=== PATIENT | male | born 1950 | race Caucasian/White ===

== ENCOUNTER 2024-12-13 08:34 | Outpatient (REF) | payer MEDICARE, OTHER, SELFPAY ==
--- OUTSIDE RECORDS SUMMARY | 2024-12-13 11:03 | XMS_ITS | Data Portability ---
Author Organization [place] [facility] Address [address] [place] [address] Care Team Providers Care Lead Applications Developer Name Role Phone LU MAURICIO Primary Care Provider Assessment Encounter Date Assessment Date Assessment LastModified by Organization Details LastModified Time 03/03/2022 03/03/2022 Overview/History : 72 YO M new to DH and new to provider Seen today in his home PMH of CAD s/p CABG, HLD, Hypothyroid He has 1-2 day hx of cold like sxs Mild non-productive cough, stuffy nose, sore throat yesterday but better today. He tested negative for COVID yesterday when sxs began. He reports he had fever Tmax 100.2 F yesterday and he is taking Tylenol w/ good effect. He is also taking Vit C to help his immune system. Nothing makes sxs worse. Currently he denies any abd pain, NVD, weakness, lethargy, headache, visual changes, diff swallowing, numbness/tinglin g, SOB, chest pain. No other reported sxs or concerns today. Overall he feels he has a cold and his sxs are mild. Exam: Vitals: VSS and afebrile; ambulatory O2 sat stable at 97-98% w/o sxs of hypoxia Constitutional: 72 yo Well developed, well nourished, pleasant patient in no apparent distress. Laying in bed comfortably and not toxic appearing. Watching TV. Eyes: PERRL at 4mm, EOM's intact, No swelling, no discharge, sclera / conjunctiva clear ENT: no nasal discharge, no erythema/ exudate noted in oropharynx, uvula midline, moist mucous membranes CV: RRR, no rubs/ murmurs/ gallops heard, 2+ radial pulses bilaterally, no edema and no calf tenderness BL, 2+ DP/ PT pulses bilaterally Pulm: breath sounds clear and equal bilaterally, no wheeze/ rhonchi or rales on auscultation. Speaks in full sentences, no increased work of breathing. GI: Soft, non-tender to palpation. No masses, normal bowel sounds. No guarding and no distension. MS: Self ambulatory patient, moves all limbs without deficit, no evidence of trauma Neuro: No focal deficits, A&O x4, gait is not ataxic Skin: No rash. + cap refill, no cyanosis/pallor Psych: Calm, cooperative, non-manic. Pleasant. DDx considered, but not limited to: COVID - + test and consistent sxs Flu/RSV - no systemic sxs ie body aches to make me think flu, no tachypnea or low O2 sat to make me think RSV, more mathew covid based on sxs URI - d/t COVID see above CAP - lungs CTAB, no fever, not productive cough, doubtful Work up/Results: Rapid COVID + Plan/Discussion: COVID: -+ for COVID, sxs started yesterday morning -Pt overall w/ mild cold sxs, he is full vax w/ all boosters for COVID -He has some risk factors for severe dz, discussed Paxlovid -Discussed s/e and rebound COVID; he would like to think on this and discuss w/ PCP harsh since he will have to come off of atorvastatin possiby w/ script/ We also do not do prior auths which may delay him in getting medication. He will call PCP and discuss once we leave as he would like their opinion anyway. He is also given free [employer] link to see about free telehealth consultation for paxlovid online. -Overall he is w/ mild sxs and I expect resolution in coming days, some of his sxs are already better today ie sore throat -isolate per CDC guidelines -Drink plenty of fluids and rest -F/u if sxs change or linger; educated that cough may linger after viral illness -ED precautions for high fever, abd pain, sig NVD, lethargy, weakness, lightheadedness/ dizziness, chest pain, SOB, cyanosis/palor numbness/tinglin g Pt is on agreement and verbalizes understanding with the above plans at this time. Pt has no other questions or concerns at this time. All questiosn are answered to the best of my ability. Pt thanks us for our visit today. Pt is in good spirits as we leave laying in bed comfortable and wishing us a good day. [email or web address] Not available 03/03/2022 09:33:48 Plan of Treatment Reminders Order Date Submit Date Provider Last Modified By Organization Details Last Modified Time Details Appointments None recorded. Lab rapid SARS CoV 2 Ag, QL IA, respiratory specimen 2022 023 [facility], [address] [place], [address], 09:33:20 Referral None recorded. Procedures None recorded. Surgeries None recorded. Imaging None recorded. Medication Orders None recorded. Patient TargetsNo targets recorded. Patient InstructionsNo instructions recorded. Reason for Referral None Reported. Results Created Date Observation Date Name Description Value Unit Range Abnormal Flag Note LastModifiedBy Organization Detail LastModifiedTime 03/03/19 23 03/03/2022 rapid SARS CoV 2 Ag, QL IA, respi rator y speci men Covid-19 (ref: neg) positi ve Not Available [facility] [address] [place] [address], [phone], 03/03/2022 09:32:53 03/03/19 23 03/03/2022 rapid SARS CoV 2 Ag, QL IA, respi rator y speci men Control Visual ized/V alid Not Available [facility] [address] [place], [address], 03/03/2022 09:32:53 03/03/1903/03/2022 rapid SARS CoV 2 Ag, QL IA, respi rator y speci men Location [facility], [address] [place] [address], [id number] Not Available [facility] [address] [place], [address], 03/03/2022 09:32:53 Result Notes None recorded. Procedures Surgical History Date Name Laterality Status Provider Name and Address Organization Details Recorded Time 023 Medication Review completed FRANCY Lambert [address] [place], [address], [place] [facility] 03/03/2022 09:27:17 Appendectomy completed FRANCY Lambert [address], [place], [address], [place] [facility] 03/03/2022 08:37:28 CABG completed FRANCY Lambert [address], [place], [address], [place] [facility] 03/03/2022 08:42:33 Imaging Results None recorded. Procedure Notes None recorded. Medical Equipment None Reported. Allergies Allergen ID Allergen Name Allergen Category Reaction Reaction Severity Criticality Documentation Date Start Date Code Code System Note Provider Name and Address Organization Details Recorded Time [id number] Dilaudid medicatio n Not available Not available Not available 03/03/2022 46008 3 RxNorm FRANCY Ku [address] [place], [address], [place] [facility] 08:40:41 Medications Name Sig Start Date Stop Date Status Note LastModified by Organization Details LastModified Time amoxicillin 500 mg capsule TAKE ONE CAPSULE BY MOUTH THREE TIMES A DAY UNTIL GONE 03/03 completed Not Available Not Available Not Available atorvastati n 20 mg tablet TAKE 1 TABLET BY MOUTH EVERY DAY active Not Available Not Available No t Available peg-electro lyte solution 420 gram oral solution PLEASE SEE ATTACHED FOR DETAILED DIRECTION S 03/03 completed Not Available Not Available Not Available levothyroxi ne 100 mcg tablet TAKE 1 TABLET BY MOUTH DAILY active Not Available Not Available No t Available famotidine 20 mg tablet TAKE 1 TABLET BY MOUTH TWICE A DAY active Not Available Not Available No t Available tamsulosin 0.4 mg capsule TAKE 2 CAPSULES BY MOUTH AT BEDTIME active Not Available Not Available No t Available indomethaci n 50 mg capsule TAKE 1 CAPSULE BY MOUTH THREE TIMES A DAY FOR 7 DAYS 03/03 completed Not Available Not Available Not Available colchicine 0.6 mg tablet TAKE 2 TABLETS BY MOUTH ONE DOSE, THEN 1 TABLET BY MOUTH 1 HR LATER 03/03 completed Not Available Not Available Not Available fluticasone propionate 50 mcg/actuati on nasal spray,suspe nsion SPRAY 2 SPRAYS INTO EACH NOSTRIL EVERY MORNING active Not Available Not Available No t Available atenolol 50 mg tablet TAKE 1 TABLET BY MOUTH EVERY DAY active Not Available Not Available No t Available Readi-Cat 2 2 % (w/v) oral suspension USE DIRECTED PER 03/03 completed Not Available Not Available Not Available Vitals Date Recorded Heart rate Respiratory rate Oxygen saturation Oxygen saturation in Arterial blood by Pulse oximetry Body temperature Systolic And Diastolic Provider Name and Address Organization Details Last Updated DateTime 3 82 /min 18 /min 96 % 96 % 98.6 [degF] 138/78 mm[Hg] Not Available [facility] 09:09:41 Social History Question Answer Notes LastModified by [employer] Details LastModified Time Tobacco Smoking Status Former Smoker FRANCY Lambert [facility], [address], [place] [facility] 03/03/2022 08:46:56 When Did You Quit Smoking? 11-15yearssi ncelastcigar ette Information not available 03/03/2022 Does This Patient Have A PCP? Yes [email or web address] Information not available 03/03/2022 Has The Patient Seen Their PCP In The Past 6 Months? Yes [email or web address] Information not available 03/03/2022 Sex: Unknown Functional Status Question Answer Note LastModified by [employer] Details LastModified Time Do you use any illicit or recreational drugs? No Information not available 03/03/2022 What is your level of alcohol consumption? Occasional Information not available 03/03/2022 Mental Status None recorded. Family History Relationship Description Onset Age of this Age Resolved Age Notes LastModified by Organization Details LastModified Time Brother Hypertensive disorder [email or web address] Not available 2022 08:45:18 Medical History Condition Response Diabetes N Coronary Artery Disease Y CHF N Parkinson's Disease N Cancer N Stroke N Dementia N Hypothyroidism Y COPD N Asthma N Depression N High Cholesterol Y Rheumatoid Arthritis N Pulmonary Embolism N Hypertension N A-fib N Osteoporosis N Kidney Disease N Past Encounters Encounter ID Performer Location Encounter Start Date Encounter Closed Date Diagnosis/Indication Diagnosis SNOMED-CT Code Diagnosis ICD10 Code Diagnosis IMO Codes Diagnosis Note [id number] FRANCY Vargas [facility] [address] [place] [address] 03/03/2022 08:36:16 03/06/2022 13:49:25 COVID-19 250531466 U07.1 Health Concerns Section Related Observation LastModified by Organization Detai ls LastModified Time None Recorded Concern Status LastModified by Organization Details LastModified Time None Recorded Advance Directives Directive None Recorded Payers Insurance Date Sequence Insurance Name Policy Number Policy Ackerman Covered Member ID Ackerman Member ID Guarantor Name 03/03/2022 2 [facility] (MEDICARE SUPPLEMENT) Joselo Dean [id number] Joselo Aniyah 03/03/[address] [facility] (MEDICAID HMO) Joselo Dean [id number] Joselo Dill 03/25/2022 2 [facility] (MEDICARE SUPPLEMENT) [id number] Joselo Dean [id number] [facility] 03/25/2022 1 MEDICARE [place]: [facility] [employer] Joselo Dean [id number] [place] Aniyah 03/03/2022 1 *SELF PAY* Joselo Dean [id number] [facility] Notes Date Note Type Note Provider Name and Address Organization Details Recorded Time 03/03/2022 text/html 72 YO M new to and new to providerSeen today in his homePMH of CAD s/p CABG, HLD, HypothyroidHe has 1-2 day hx of cold like sxsMild non-productive cough, stuffy nose, sore throat yesterday but better today.He tested negative for COVID yesterday when sxs began. He reports he had fever Tmax 100.2 F yesterday and he is taking Tylenol w/ good effect. He is also taking Vit C to help his immune system. Nothing makes sxs worse.Currently he denies any abd pain, NVD, weakness, lethargy, headache, visual changes, diff swallowing, numbness/tingling, SOB, chest pain. No other reported sxs or concerns today. Overall he feels he has a cold and his sxs are mild. FRANCY Lambert [address], [place], [address], [place] [facility] 03/03/2022 09:34:09
[2024-12-13 11:28] LABS: MANUAL DIFF FLAG NO
[2024-12-13 11:37] LABS: Hematocrit 48.6 % (42.0-52.0); Hemoglobin 16.0 g/dl (14.0-18.0); Imm Gran Abs Auto 0.03 X10*3/uL (0.00-0.03); Imm Gran Pct Auto 0.5 % (0.0-0.4); Lymphocytes Absolute Auto 2.0 X10*3/uL (1.2-4.9); Mean Corpuscular HGB Conc 32.9 g/dl (31.0-36.0); Mean Corpuscular Hemoglobin 30.6 pg (27.0-33.0); Mean Corpuscular Volume 92.9 fL (80.0-98.0); NRBC Abs Auto 0.000 X10*3/uL (0.0-0.012); NRBC Pct Auto 0.0 /100WBC (0.0-0.2); Platelet Count 155 X10*3/uL (160-400); Red Blood Count 5.23 X10*6/uL (4.60-5.80); White Blood Count 6.1 X10*3/uL (4.8-10.8)
[2024-12-13 11:41] LABS: Appearance Urine Clear; Glucose Urine UA Negative (Negative); PH 6.0 (5.0-9.0); Specific Gravity - Urine 1.015 (1.005-1.025)
[2024-12-13 12:01] LABS: Alanine Aminotransferase 72 U/L (0-40); Albumin Level 4.7 g/dL (3.5-5.0); Alkaline Phosphatase 64 U/L (39-117); Anion Gap 12 (12-20); Aspartate Amino Transferase 41 U/L (5-37); Blood Urea Nitrogen 14 mg/dL (9-16); Calcium 9.7 mg/dL (8.4-10.2); Carbon Dioxide 30 mmol/L (22-29); Chloride 101 mmol/L (96-108); Cholesterol 121 mg/dL (<200); Estimated Glomerular Filt Rate > 60; HDL Cholesterol 38 mg/dL (>40); Potassium 4.2 mmol/L (3.3-5.1); Sodium 139 mmol/L (135-145); Total Protein 7.6 g/dL (6.5-8.0); Triglycerides 154 mg/dL (<150)
[2024-12-13 12:30] LABS: Microalbum/Creatinine Ratio Ur 5.4 ug/mg cr (<30)
[2024-12-20 21:09] LABS: PSA, Ultra Sensitive 3.79 ng/mL
== END 2024-12-13 08:35 | disposition home or self-care (01) ==
LOC: HO.WFDLDS 08:34
PROVIDERS: PCP Nurse Practitioner Family; Visit Provider Nurse Practitioner Family
DX: Z00.00 Encounter for general adult medical examination without abnormal findings (principal); N40.1 Benign prostatic hyperplasia with lower urinary tract symptoms; R35.1 Nocturia; G47.9 Sleep disorder, unspecified; M81.0 Age-related osteoporosis without current pathological fracture; Z23 Encounter for immunization; Z12.5 Encounter for screening for malignant neoplasm of prostate
CPT/HCPCS: 36415; 80053; 80061; 81003; 82043; 82306; 82570; 84153; 84443; 85025; 90471; 90715; 96127; 99202

== ENCOUNTER 2024-12-13 08:34 | Outpatient (AMB) | payer MEDICARE, OTHER, SELFPAY ==
--- NOTE | 2024-12-13 08:36 | MHC.PC.OV ---
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 Allergies hydromorphone (From Dilaudid) Allergy (Intermediate, Verified 12/13/24 09:01) Vomiting Medication List - Last Reconciled 12/13/24 by Latesha Mckeon CNP aspirin (Adult Low Dose Aspirin) 81 mg PO DAILY atenolol 25 mg PO DAILY atorvastatin 20 mg PO DAILY cholecalciferol (vitamin D3) 50 mcg PO DAILY coQ10 (ubiquinol) (Qunol Shivam CoQ10) 100 mg PO DAILY famotidine 20 mg PO BID gabapentin 100 mg PO TID levothyroxine 100 mcg PO DAILY mecobalamin (vitamin B12) 1,000 mcg PO DAILY multivitamin (Daily Multi-Vitamin tablet) 1 tab PO DAILY omega 6-zqk-vfb-fish oil 100-160-1,000 mg (Fish Oil) 2 caps PO DAILY tamsulosin 0.8 mg PO BEDTIME Tobacco use date assessed: 12/13/24 Fall risk assessment: 2 + Falls in past year Last assessed Fall Risk: 12/13/24 Dental Screening Dental Screen Date: 12/13/24 Did you have a dental visit in the last 12 months?: Yes Did you have a dental problem in the last 6 months where you did not have access to dental care?: No Was dental information given to patient?: Patient has dentist HPI HPI Comments History of Present Illness Details 74-year-old male presents to establish care. He admits to taking his medications as prescribed without adverse reactions. Prior PCP? - Dr. Moreno, [facility] Last office visit/CPE/labs - Unsure Acute issue(s) - None Past Medical History - Hypertension, heart disease, hyperlipidemia, pacemaker, cataract both eyes, hypothyroidism, osteoporosis, IBS, GERD, tendinitis left elbow, arthritis multiple joints, BPH Surgical History - Heart bypass surgery, appendectomy, tendon repair left elbow, cataract surgery, cyst removal from right buttock r/t work-related injury, surgical repair of left 5th digit d/t injury Family History - Mom: Heart disease - Alive - Dad: Pick's disease - - MGF: Heart disease - Social History - Former smoker, half a pack daily x 8 years with intermittent cessation, quit in 2011. Does not vape. Drinks 1-2 glasses of wine/scotch or bourbon 2 times weekly. Denies recreational drug use - Has been making healthy dietary choices.Active but does not exercise. Reports difficulty staying asleep due to urinary urgency and hesitancy. Requests urology referral Health maintenance - Last eye exam was in 10/[address] Blair. He has an appointment with him today. Encouraged to sign a release for his PCP to obtain is ophthalmology record - Last dental visit was about a month ago - Last tetanus vaccine was more than 10 years ago; received Tdap vaccine today - Received flu vaccine in 10/2024 - Had the shingles and pneumonia vaccines - Last colonoscopy was in was with [facility] gastroenterology in 06/08/2021: Benign polyps. Recommended next colonoscopy after 5 years. Will request record for review - Last dexa scan unknown. Dexa scan ordered Specialists - Dr. Blair, Ophthalmology - Dr. Memo Lockhart, [facility] REPLACED BY [facility] Medical History (Updated 12/13/24 @ 09:38 by Latesha Mckeon CNP) Prostate troubles History of gastroesophageal reflux (GERD) IBS (irritable bowel syndrome) Osteoporosis Arthritis H/O thyroid disease Heart disease High blood pressure Tendinitis Pacemaker Surgical History (Updated 12/13/24 @ 08:58 by SAY Antunez) History of removal of cyst Hx of appendectomy History of heart bypass surgery Family History (Updated 12/13/24 @ 09:04 by SAY Antunez) Brother Alcohol abuse Substance abuse Cardiovascular disease FH: thyroid disease Mother High blood pressure High cholesterol Cancer Other Patient's father is Social History (Updated 12/13/24 @ 08:52 by SAY Antunez) Housing: House Patient Tobacco Use Status: Never used Tobacco e-Cigarette/Vaping Use: Never Used Second Hand Smoke Exposure: No service: No Current occupational status: retired Current occupational exposures/hazards: No Cognitive needs: No Hearing needs: No Vision needs: Yes Questionnaire PHQ-9 Over the last 2 weeks, how often have you been bothered by any of the following problems? 1. Little interest or pleasure in doing things: not at all 2. Feeling down, depressed, or hopeless: not at all 3. Trouble falling or staying asleep, or sleeping too much: not at all 4. Feeling tired or having little energy: not at all 5. Poor appetite or overeating: not at all 6. Feeling bad about yourself - or that you are a failure or have let yourself or your family down: not at all 7. Trouble concentrating on things, such as reading the newspaper or watching television: not at all 8. Moving or speaking so slowly that other people could have noticed. Or the opposite - being so fidgety or restless that you have been moving around a lot more than usual: not at all 9. Thoughts that you would be better off or of hurting yourself in some way: not at all Total score: 0 Depression Screening Interpretation: Negative Depression Screening Done: Yes 85394 - PHQ-9 Billing: Yes Source: Developed by Drs. Juan Mccarthy, Wandy Wood, Jaison Smith and colleagues, with an educational ed from [employer]. Thrive Questionnaire Date Thrive assessed: 12/13/24 I am a: Patient What is your living situation today?: I have a steady place to live Within the past 12 months, did the food you bought not last and you didn't have the money to get more?: Never true Within the past 12 months, did you worry whether your food would run out before you got money to buy more?: Never true Do you have trouble paying for medicines?: No Do you have trouble getting transportation to medical appointments?: No Do you have trouble paying your heating and electricity bill?: No Do you have trouble taking care of your child, family member or friend?: No Do you have trouble with day-to-day activities such as bathing, preparing meals, shopping, managing finances, etc.?: No Are you currently unemployed and looking for a job?: No Are you interested in more education?: No Please select the resources that you would like help with: None Currently or been in a relationship where the following occur: No concerns reported THRIVE Score: 0 AUDIT C Alcohol Use Questionnaire (AUDIT-C) 1. How often do you have a drink containing alcohol?: 2-4 times a month 2. How many drinks containing alcohol do you have on a typical day when you are drinking?: 1 or 2 3. How often do you have six or more drinks on one occasion?: Never Total Score: 2 Score Reviewed/Action Taken: Yes ZANDER-7 AMB Questionnaire ZANDER-7 Date ZANDER - 7 assessed: 12/13/24 Feeling nervous, anxious, or on edge: 0 = Not at all Not being able to stop or control worryin = Not at all Worrying too much about different things: 0 = Not at all Trouble relaxin = Not at all Being so restless that it is hard to sit still: 0 = Not at all Becoming easily annoyed or irritable: 0 = Not at all Feeling afraid as if something awful might happen: 0 = Not at all Total ZANDER-7 score (0-4 normal; 5-9 mild; 10-14 moderate; 15-21 severe): 0 Source: Developed by Drs. Juan Mccarthy, Wandy Wood, Jaison Smith and colleagues, with an educational ed from [employer]. AZNDER-7 Assessment Billing ZANDER-7 Assessment Tool: ZANDER-7 Assessment 37458 Review of Systems Const Details: Denies chills, Denies fatigue, Denies fever(s), Denies headache(s) and Denies weakness HEENT Denies change in vision, Denies dizziness, Denies headache(s), Denies hearing loss, Denies nasal congestion, Denies sinus pain, Denies sinus pressure and Denies sore throat Card Denies chest pain, Denies lightheadedness, Denies dyspnea and Denies other (palpitations) Resp Denies cough, Denies dyspnea and Denies wheezing GI Denies abdominal pain, Denies melena, Denies hematochezia, Denies change in bowel habits, Denies dyspepsia and Denies nausea Denies hematuria and Denies dysuria Musc Denies abnormal gait, Denies myalgias, Denies arthralgias, Denies numbness and Denies tingling Skin/Breast Denies rash, Denies unusual bruising and Denies wounds Neuro Denies abnormal gait, Denies dizziness, Denies headache(s), Denies memory loss, Denies numbness, Denies Sensory deficit (Neuro), Denies tingling and Denies weakness Psych Denies anxiety, Denies depression and Denies memory loss Endo Denies cold intolerance, Denies fatigue, Denies heat intolerance, Denies polydipsia and Denies polyuria Devante/Lymph Denies easy bleeding and Denies easy bruising Aller/Immun Denies wheezing Physical exam (Primary Care) Vital Signs: Last Vital Signs Temp 97.8 F 12/13/24 08:52 Pulse 66 12/13/24 08:52 Resp 16 12/13/24 08:52 BP 131/75 12/13/24 08:52 Pulse Ox 96 12/13/24 08:52 Oxygen Delivery Method Room Air 12/13/24 08:52 BMI result Body Mass Index 32.0 Tobacco/Smoking Status: Tobacco use Status Tobacco use date assessed 12/13/24 12/13/24 08:52 Patient Tobacco Use Status Never used Tobacco 12/13/24 08:52 e-Cigarette/Vaping Use Never Used 12/13/24 08:52 PHQ-9: PHQ-9 Score PHQ-9: Total score 0 12/13/24 09:42 Depression Screening Interpretation: Negative Thrive Assessment: Date of Thrive Assessment Date Thrive assessed 12/13/24 12/13/24 08:39 Currently or been in a relationship where the following occur: No concerns reported Const Other: General: no acute distress, well developed, alert and awake Nutritional Appearance: well nourished Orientation/consciousness: patient oriented x3 HENMT Head: Yes normocephalic and Yes atraumatic Ears: hearing grossly normal bilaterally and TM's normal bilaterally General nose exam: Normal external nose present and Normal nares present Mouth: Normal oral and palatal mucosa present and moist mucous membranes Teeth and gingiva: dentition normal Throat: Yes oropharynx normal Eyes Pupils: Equal, round and reactive pupils present and Pupil accommodation reflex normal EOM: EOMs intact bilaterally Neck Neck: Yes normal visual inspection, Yes no lymphadenopathy and Yes trachea midline Thyroid: Thyroid normal Carotids: no bruits Lymphatic: no lymphadenopathy noted Chest Chest palpation & inspection: normal inspection of the chest Resp Effort & Inspection: normal respiratory effort Auscultation: clear to auscultation bilaterally Cardio Rate: regular rate Rhythm: regular rhythm Heart sounds: S1 normal heart sound present, S2 normal heart sound present, no gallops, no murmurs and no rubs Bruits: no abdominal aortic bruits and no carotid bruits GI Palpation (GI): No Abdominal aortic bruit present, Soft to palpation, nontender, No hepatosplenomegaly present and No Rebound tenderness present Auscultation: normal bowel sounds General: Yes no CVA tenderness Back/Spine/Pelvis Back: no CVA tenderness Cervical Spine: cervical ROM normal and No Cervical spine tenderness Thoracic/Lumbar Spine: thoraco-lumbar ROM normal, No pain with thoraco-lumbar ROM, No thoracic spinal tenderness and No lumbar spinal tenderness Skin General: warm and dry. Normal skin color. Normal skin turgor Lesions: no lesions Rashes: no rashes Trauma: no lacerations or abrasions Wounds: no wounds Nails: normal Neuro General: patient oriented x3, gait normal and CN's II-XI intact bilaterally Cranial nerves: Yes Equal, round and reactive pupils present Cognition (Neuro): normal cognition Gait exam (Neuro): Normal gait present Motor exam (neuro): 5/5 motor strength present throughout Sensory Exam: No Sensory deficit (Neuro) Deep tendon reflexes (DTR's): Right patellar reflex intensity grade: 2+ and Left patellar reflex intensity grade: 2+ Extrem General: Yes normal to inspection, No edema and No calf tenderness Psych Appearance: grossly normal Affect: normal affect Attitude: cooperative Thought process: Normal thought process present Immunizations Boostrix Tdap 2.5 Lf unit-8 mcg-5 Lf/0.5 mL intramuscular syringe Performing Provider: Latesha Mckeon CNP Performing Location: [facility] Administered by: Memo Vuong RN on 12/13/24 09:42 Dose Route Admin Location Dispensed Lot Number Expiration Date [facility] [employer] 0.5 mL IM Left Deltoid 0.5 mL [id number] 01/10/27 [id number] [place] Total Dispensed Waste 0.5 mL 0 % VIS Given Date VIS Provided VIS Publication Date 12/13/24 Single Vaccine 20 Eligibility Eligibility Date Funding Source Not [facility] Eligible 12/13/24 Private Coding Level of Care Code New Pt Level 4 (11447) New Pt Prev Care >65yr (13629) Diagnoses Normal physical examination, routine Z00.00 BPH associated with nocturia N40.1; R35.1 Sleep disturbance G47.9 Osteoporosis M81.0 Laboratory tests ordered as part of a complete physical exam (CPE) Z00.00 Additional Codes ZANDER-7 Assessment Billing - ZANDER-7 Assessment Tool: ZANDER-7 Assessment 55274 ([id number]) PHQ-9 - 46497 - PHQ-9 Billing: Yes ([id number]) Assessment & Plan Assessment & Plan (1) Normal physical examination, routine: Code(s): Z00.00 - Encounter for general adult medical examination without abnormal findings Category: Medical Plan: No significant functional limitation noted. Continue current treatment regimen. Healthy diet and routine exercise encouraged. Instructed on safety to prevent fall. Perform lab work and follow-up for labs review in 2-3 weeks. Return sooner with symptoms or concerns. Verbalized understanding and agreed with the plan. (2) BPH associated with nocturia: Code(s): N40.1 - Benign prostatic hyperplasia with lower urinary tract symptoms; R35.1 - Nocturia Category: Medical Plan: Reports difficulty staying asleep due to urinary urgency and hesitancy. Request urology referral. Continue to take tamsulosin as prescribed. Referred to [facility] Urology. (3) Sleep disturbance: Code(s): G47.9 - Sleep disorder, unspecified Category: Medical Plan: Instructed on sleep hygiene. Plan as above. (4) Osteoporosis: Code(s): M81.0 - Age-related osteoporosis without current pathological fracture Category: Medical Plan: Last dexa scan unknown. Dexa scan ordered. (5) Laboratory tests ordered as part of a complete physical exam (CPE): Code(s): Z00.00 - Encounter for general adult medical examination without abnormal findings Category: Medical Plan: Fasting labs ordered as part of a complete physical exam. Advised to fast for at least 10 hours before getting labs drawn. May drink water Verbalized understanding and agreed with treatment plan. Orders: Orders Comprehensive [place]. Panel Fast Today Z00.00 - Encounter for general adult medical examination without abnormal findings Microalbumin, Random (w Creat) Today Z00.00 - Encounter for general adult medical examination without abnormal findings PSA, Ultra Sensitive Today Z00.00 - Encounter for general adult medical examination without abnormal findings TDaP Immunization Today Z23 - Encounter for immunization XR DEXA axial skeleton Today M81.0 - Age-related osteoporosis without current pathological fracture Complete Blood Count Auto Diff Today Z00.00 - Encounter for general adult medical examination without abnormal findings Lipid Panel Today Z00.00 - Encounter for general adult medical examination without abnormal findings TSH reflex Free T4 Today Z00.00 - Encounter for general adult medical examination without abnormal findings UA CC w/rflx Micro + Cult Today Z00.00 - Encounter for general adult medical examination without abnormal findings Vitamin D 25-OH Total Today Z00.00 - Encounter for general adult medical examination without abnormal findings Referrals Urology Referral N40.1 - Benign prostatic hyperplasia with lower urinary tract symptoms, R35.1 - Nocturia
--- OUTSIDE RECORDS SUMMARY | 2024-12-13 08:49 | XMS_ITS | Clinical Summary ---
Author Organization [address] [place] [address] [place] [id number] Phone Care Team Providers Care Adobe Developer Name Role Phone Cecil Moreno MD Primary Care Provider [phone] Allergies Active Allergy Reactions Criticality Noted Date Comments Hydromorphone Nausea And Vomiting High 06/03/2015 vomiting Medications atenoloL (TENORMIN) 25 mg tablet Take 1 tablet (25 mg total) by mouth 1 (one) time each day. Active levothyroxine (SYNTHROID, LEVOTHROID) 100 mcg tablet Take 1 Tablet by mouth daily. Active tamsulosin (FLOMAX) 0.4 mg 24 hr capsule Take by mouth 2 (two) times a day. Active atorvastatin (LIPITOR) 20 mg tablet Take 1 Tablet by mouth daily. Active famotidine (PEPCID) 20 mg tablet Take 1 Tablet by mouth 2 times daily. Active aspirin 81 mg EC tablet Take 1 Tablet by mouth daily. Active coenzyme Q-10 100 mg capsule Take 1 Capsule by mouth daily. Active multivit-min/iron /folic acid/K (ADULTS MULTIVITAMIN ORAL) Take 1 Tablet by mouth daily. Active cyanocobalamin, vitamin B-12, 1,000 mcg capsule Take 1 Capsule by mouth daily. Active Active Problems Problem Noted Date Diagnosed Date Complete heart block ([facility] V24, [facility] V28) 08/29/2023 Overview (01/09/2024): Last Assessment & Plan: This 73-year-old gentleman has a history of complete AV block status post dual-chamber pacemaker upgraded recently to a dual-chamber biventricular pacemaker. He is pacemaker dependent with no significant underlying rhythm. We are setting him up for remote monitoring through our office at his request. His device is working well with excellent capture thresholds, sensing and lead impedances. I did increase the AV delay given the ventricular paced complexes occurring before completion of atrial emptying. His device is healing well and I removed the dressing. The surgical glue is intact and I given instructions on wound care. Coronary artery disease 08/29/2023 Overview (01/09/2024): Coronary disease with bypass surgery 1993 in [place]. Subsequent catheterization several years ago showed progression but with good collateralization and given the absence of angina he has been treated with aspirin, beta-juan and statin. Most recent lipid profile from LDL less than 70. His triglycerides have been mildly elevated in the low 200s and he is on fish oil and a low carbohydrate diet. Last Assessment & Plan: Stable coronary disease without active angina. Continue aspirin, atenolol and atorvastatin. An argument could be made to increase his atorvastatin but given the LDL is less than 70 I am going to continue the current dose. 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 I am glad to see that he was upgraded successfully to a biventricular pacemaker and that his LVEF is only mildly reduced. His heart failure class is quite stable and he appears euvolemic today. He knows to follow a low-sodium diet and monitor his weight. He is not on a significant heart failure regimen at this point but given where the LVEF is in his symptoms I am fairly comfortable with that. If he developed a higher blood pressure I certainly would have a low threshold to add guideline directed medical therapy. Encounters Date Type Department Care Team Description 12/05/2024 6:30 PM EDT Ancillary Procedure [facility] [address] [place] [address] 11/13/2024 2:20 AM EDT Ancillary Procedure [facility] [address] [place] [address] 10/04/2024 9:15 AM EDT Ancillary Procedure [facility] [address] [place] [address] from Last 3 Months Immunizations Immunization Administration Dates Next Due Moderna SARS-CoV-2 COVID-19, mRNA, LNP-S, preservative free 10/20/2021 Family History Medical History Relation Name Comments Other Mother Relation Name Status Comments Mother Social History Tobacco Use Types Packs/Day Years Used Date Smoking Tobacco: Never Smokeless Tobacco: Never Alcohol Use Standard Drinks/Week Comments Not Currently 0 (1 standard drink = 0.6 oz pur e alcohol) Sex and Gender Information Value Date Recorded Sex Assigned at Not on file Legal Sex Male 11:03 AM EDT Gender Identity Not on file Sexual Orientation Not on file Obstetrics History Last Filed Vital Signs Vital Sign Reading Time Taken Comments Blood Pressure 132/80 08/22/2024 12:19 PM EDT Pulse 63 03/06/2024 10:34 AM EST Temperature - - Respiratory Rate - - Oxygen Saturation - - Inhaled Oxygen Concentration - - Weight 99.3 kg (219 lb) 08/22/2024 12:19 PM EDT Height 175.3 cm (5' 9 ) 08/22/2024 12:19 PM EDT Body Mass Index 32.34 08/22/2024 12:19 PM EDT Plan of Treatment Upcoming Encounters Date Type Department Care Team (Late st Contact Info) Description 03/10/2025 9:55 AM EST Office Visit [facility] Cardiology [facility] [address] [place] [address] Memo Garcia MD [address] [place] [address] [place] [address] Health Maintenance Due Date Last Done Comments Colorectal Cancer Screening: Colonoscopy 1950 DTaP,Tdap,and Td Vaccines (1 - Tdap) 02/18/1968 Hepatitis A Vaccines (1 of 2 - Risk 2-dose series) 02/18/1968 Hepatitis B Vaccines (1 of 3 - Risk 3-dose series) 2009 Cholesterol Screening (Lipid Panel) 09/08/2023 05/09/2018 Falls Risk Assessment 09/08/2023 Hepatitis C Screening 09/08/2023 Hypertension/CHF/CAD Annual BMP Blood Test 09/08/2023 06/17/2020, 06/17/2020 Medicare Annual Wellness Visit 09/08/2023 Social Influencers of Health Screening 09/08/2023 Depression Screening 02/14/2024 Zoster Vaccines Completed 02/08/2021, 10/23/2020 RSV Immunization Adult Patients Completed 11/21/2022 Pneumococcal Vaccine: 50+ Years Completed 05/03/2024 COVID-19 Vaccine Completed 10/23/2024, , 11/21/2023, Additional history exists Influenza Vaccine Completed 10/23/2024, , 11/21/2022, Additional history exists HIB Vaccines Aged Out No longer eligi ble based on patient's age to complete this topic HPV Vaccines Aged Out No longer eligi ble based on patient's age to complete this topic IPV Vaccines Aged Out No longer eligi ble based on patient's age to complete this topic MMR Vaccines Aged Out No longer eligi ble based on patient's age to complete this topic Meningococcal ACWY Vaccine Aged Out N o longer eligible based on patient's age to complete this topic Meningococcal B Vaccine Aged Out No l onger eligible based on patient's age to complete this topic RSV Immunization Patients Under 20 months Aged Out No longer eligible based on patient's age to complete this topic Varicella Vaccines Aged Out No longer eligible based on patient's age to complete this topic Medical Devices Implanted Type Area Converter Skimmer Device Identifier Shelf Expiration Date Model / Serial / Lot Medt-Card Madina Hspt Tutor-P [id number] Implanted:10/2023 (Quantity not on file) Cardiac SYSTEMS PROTECTION TECHNICIAN-P [employer] - CARDIAC RHYTH-CRDM MADINA SYSTEMS PROTECTION TECHNICIAN-P [id number] / [id number] / Procedures Procedure Name Priority Date/Time Associated Diagnosis Comments CARDIAC DEVICE CHECK- REMOTE- MURJ Routine 12/05/2024 6:26 PM EDT CARDIAC DEVICE CHECK- REMOTE- MURJ Routine 11/13/2024 2:15 AM EDT CARDIAC DEVICE CHECK- REMOTE- MURJ Routine 10/04/2024 9:14 AM EDT ANNUAL BMP BLOOD TEST Routine 06/17/2020 from Last 3 Months or Most Recently Relevant to Health Maintenance Results * Cardiac device check - Remote- MURJ (12/05/2024 6:26 PM EDT) Only the most recent of3 resultswithin the time period is included. Date Time Interrogation Session [id number] CV DEVICE CHECK Type Interrogation Session Remote CV DEVICE CHECK Implantable Pulse Generator Converter Skimmer MDT CV DEVICE CHECK Implantable Pulse Generator Type SYSTEMS PROTECTION TECHNICIAN-P CV DEVICE CHECK Implantable Pulse Generator Model Madina SYSTEMS PROTECTION TECHNICIAN-P [id number] CV DEVICE CHECK Implantable Pulse Generator Serial Number [id number] CV DEVICE CHECK Implantable Pulse Generator Implant Date 20230822 CV DEVICE CHECK Battery Remaining Longevity 116.0 CV DEVICE CHECK Battery Voltage 3.020 CV D EVICE CHECK Battery VACUUM CONDITIONER OPERATOR Trigger 2.595 CV DEVICE CHECK Battery Status Middle of Service CV DEVICE CHECK John Statistic RA Percent Paced 82.57 CV DEVICE CHECK Atrial Tachy Statistic AT/AF [place] Percent 0.00 CV DEVICE CHECK Lead Channel Sensing Intrinsic Amplitude 3.875 CV DEVICE CHECK Lead Channel Setting Sensing Sensitivity 0.30 CV DEVICE CHECK Lead Channel Impedance Value 513 CV DEVICE CHECK Lead Channel Pacing Threshold Amplitude 0.500 CV DEVICE CHECK Lead Channel Pacing Threshold Pulse Width 0.4 CV DEVICE CHECK Lead Channel RA Pacing Threshold Date 2024-12-01 CV DEVICE CHECK Lead Channel Setting Pacing Amplitude 1.500 CV DEVICE CHECK Lead Channel Setting Pacing Pulse Width 0.4 CV DEVICE CHECK Lead Channel Sensing Intrinsic Amplitude 6.625 CV DEVICE CHECK Lead Channel Setting Sensing Sensitivity 0.90 CV DEVICE CHECK Lead Channel Impedance Value 418 CV DEVICE CHECK Lead Channel Pacing Threshold Amplitude 0.875 CV DEVICE CHECK Lead Channel Pacing Threshold Pulse Width 0.4 CV DEVICE CHECK Lead Channel RV Pacing Threshold Date 2024-11-30 CV DEVICE CHECK Lead Channel Setting Pacing Amplitude 2.000 CV DEVICE CHECK Lead Channel Setting Pacing Pulse Width 0.4 CV DEVICE CHECK Lead Channel Impedance Value 684 CV DEVICE CHECK Lead Channel Pacing Threshold Amplitude 0.750 CV DEVICE CHECK Lead Channel Pacing Threshold Pulse Width 0.4 CV DEVICE CHECK Lead Channel Pacing Threshold Date 2024-11-30 CV DEVICE CHECK Lead Channel Setting Pacing Amplitude 1.250 CV DEVICE CHECK Lead Channel Setting Pacing Pulse Width 0.4 CV DEVICE CHECK John Setting Mode (NBG Code) DDDR CV DEVICE CHECK Ventricular chambers paced during SYSTEMS PROTECTION TECHNICIAN pacing. BiV CV DEVICE CHECK John Setting Lower Rate Limit 60 CV DEVICE CHECK John Setting AT Mode Switch Rate 171 CV DEVICE CHECK John Setting Maximum Tracking Rate 140 CV DEVICE CHECK John Setting Maximum Sensor Rate 140 CV DEVICE CHECK John Setting PAV Delay 170 CV DEVICE CHECK John Setting HUGO Delay 150 CV DEVICE CHECK SYSTEMS PROTECTION TECHNICIAN LV-RV Delay 40 CV D EVICE CHECK Zone Setting Type Category AT/AF CV DEVICE CHECK Rate 171 CV DEVICE CHECK Therapies Some Rx Off CV DEVIC E CHECK Zone Setting Status Monitor CV DEVICE CHECK Zone ID 2 CV DEVICE CHECK Zone Setting Type Category VT CV DEVICE CHECK Rate 150 CV DEVICE CHECK Zone Setting Status ENABLED CV DEVICE CHECK Zone ID 6 CV DEVICE CHECK Date of Service 2024-12-09 CV DEVICE CHECK Anatomical Region Laterality Modality Device Interroga tion 11/30/2024 9:39 PM EDT Impressions 12/05/2024 7:47 AM EDT Normal Remote: No Events * Normal Device Function * Alerts or events: None * Battery: OK, 9.67 yrs * Sensing, impedance and thresholds reviewed * Programmed parameters reviewed * Presenting rhythm reviewed * Heart Rate Histograms reviewed * No significant changes noted Heart Failure Diagnostic: Stable * Heart failure diagnostics assessed through the device * Status: Stable * No overt HF present Narrative Procedure Note Memo Garcia MD - 12/05/2024 IMPRESSION: Normal Remote: No Events * Normal Device Function * Alerts or events: None * Battery: OK, 9.67 yrs * Sensing, impedance and thresholds reviewed * Programmed parameters reviewed * Presenting rhythm reviewed * Heart Rate Histograms reviewed * No significant changes noted Heart Failure Diagnostic: Stable * Heart failure diagnostics assessed through the device * Status: Stable * No overt HF present Memo Garcia MD CV IMPLANTABLE CARDIAC DEVICE PROCEDURES Final Result * Annual BMP Blood Test (06/17/2020) Annual BMP Blood Test abstracted Historical Provider HEALTH MAINTENANCE Final Result from Last 3 Months or Most Recently Relevant to Health Maintenance Insurance MEDICARE HUMAN Care Teams Adobe Developer Relationship Specialty Start Date End Date Cecil Moreno MD [address] [place] [address] PCP - General 07/12/23
--- OUTSIDE RECORDS SUMMARY | 2024-12-13 08:49 | XMS_ITS | Clinical Summary ---
Author Organization [facility] Address [address] [facility] [address] [place] [phone] Phone Care Team Providers Care Seam Closer Name Role Phone Cecil Moreno MD Primary Care Provider + Allergies Active Allergy Reactions Criticality Noted Date Comments Hydromorphone Nausea And Vomiting High 01/21/2016 vomiting Hydromorphone (Bulk) Nausea And Vomiting 2015 Medications famotidine (PEPCID) 20 MG tablet Take by mouth. 08/05/2022 Active cyanocobalamin, vitamin B-12, 1000 MCG tablet Take 1,000 mcg by mouth daily. Active cholecalciferol (VITAMIN D3) 25 MCG (1,000 unit) tablet Take 25 mcg by mouth daily. Active benzonatate (TESSALON) 100 MG capsule Take 200 mg by mouth. 03/04/2022 Active atorvastatin (LIPITOR) 20 MG tablet Take 20 mg by mouth. 12/28/2021 Active atenolol (TENORMIN) 50 mg tablet Take 50 mg by mouth. 12/27/2021 Active aspirin 81 mg chewable tablet Take 81 mg by mouth daily. Active MULTIVITAMIN ORAL Take 1 tablet by mouth every morning. Active tamsulosin (FLOMAX) 0.4 mg Cap Take 0.4 mg by mouth. Active levothyroxine (SYNTHROID, LEVOTHROID) 100 MCG tablet Take 1 tablet by mouth every morning. 12/19/2022 Active coenzyme Q10 100 mg capsule Take 100 mg by mouth daily. Active fluticasone propionate (FLONASE ALLERGY RELIEF) 50 mcg/actuation nasal spray by Nasal route. 09/21/2021 Active chlorhexidine (PERIDEX) 0.12 % solution Use as directed 15 mL in the mouth or throat 2 (two) times a day. 120 mL 12/28/2022 Active Active Problems Problem Noted Date Diagnosed Date Coronary artery disease 12/28/2022 12/29/19 23 Overview (12/28/2022): s/p two-vessel CABG [address] [facility] with PALACIOS to LAD and VG to RCA; [facility] 07/27/10 showed significant two-vessel CAD with moderate luminal disease but nonsignificant by fractional flow criteria in the ramus coronary artery, normal LV systolic functions, occluded vein graft to RCA, and patent PALACIOS to LAD, EF 60% Last Assessment & Plan: History of Present Illness 2 vessel disease / Patient PALACIOS to LAD / Chronic occluded SVG to RCA Last cath: 05/17/2018 No CP or associated acute symptoms / See ROS for details Medications: ASA / Beta Arlen / Statin Assessment No acute symptoms Plan of Care Continue current medication regimen and treatment plan Monitor symptoms and report issues as needed Continue to follow up with Dr. Varinder Haines as scheduled Hyperlipidemia 12/28/2022 12/28/2022 Overview (12/28/2022): Last Assessment & Plan: Assessment Patient tolerating statin therapy without side effects Tolerating medication therapy Plan of Care PCP is monitoring Kidney cyst, acquired 12/28/2022 12/28/2022 Hypothyroidism 12/28/2022 12/28/2022 Obstructive sleep apnea 12/28/2022 12/29/19 Paroxysmal atrial fibrillation 01/31/2020 1 02/27/2022 Essential hypertension 05/09/2018 3 Overview (12/28/2022): Last Assessment & Plan: History of Present Illness No reports of BP issues at home with current medication regimen BP this morning before video visit was 121/87 Assessment Stable Plan of Care Continue current treatment plan Monitor symptoms and report issues as needed Sick sinus syndrome 10/08/2013 12/28/2022 Overview (12/28/2022): 10/06/2013: Medtronic / Dual Chamber Pacemaker / Remote Monitoring: Yes Last Assessment & Plan: History of Present Illness Device implanted on 10/07/2013 Last remote transmission on 06/26/2019 reviewed at today's virtual visit No acute issues / Details below Assessment Stable device function Plan of Care Continue remote monitoring Return to the office in 1 year for ongoing evaluation and in-office device interrogation Social History Tobacco Use Types Packs/Day Years Used Date Smoking Tobacco: Former Cigarettes Smokeless Tobacco: Never Tobacco Cessation:Counseling Given: Not Answered Education Answer Date Recorded Are you interested in more education? Not on navin e 12/28/2022 Are you concerned about learning? Not on file 12/28/2022 No 12/28/2022 No 12/28/2022 Digital Access Answer Date Recorded No 12/28/2022 No 12/28/2022 Reliable internet access at home? Not on file 12/28/2022 Device with a working camera? Not on file Sex and Gender Information Value Date Recorded Sex Assigned at Not on file Legal Sex Male 2:26 PM EST Gender Identity Not on file Sexual Orientation Not on file Last Filed Vital Signs Vital Sign Reading Time Taken Comments Blood Pressure 120/83 12/28/2022 2:38 PM EST Pulse 60 12/28/2022 2:38 PM EST Temperature 36.7 C (98 F) 12/28/2022 2:38 PM EST Respiratory Rate 16 12/28/2022 2:38 PM EST Oxygen Saturation 97% 12/28/2022 2:38 PM EST Inhaled Oxygen Concentration - - Weight 97.5 kg (215 lb) 12/28/2022 2:38 PM EST p er pt Height - - Body Mass Index - - Plan of Treatment Health Maintenance Due Date Last Done Comments Adult Td,Tdap Booster 1949 TSH LEVEL 1949 DEPRESSION SCREENING 1961 SMOKING Hx and SMOKELESS TOBACCO SCREENING 1962 HEPATITIS C SCREENING 1967 LIPID PANEL 1967 COLOGUARD 1994 COLONOSCOPY 1994 COLORECTAL CANCER SCREENING 1994 FIT TEST 1994 FOBT 1994 SIGMOIDOSCOPY 1994 VIRTUAL COLONOSCOPY 1994 PNEUMOCOCCAL VACCINES (50+ years) (1 of 1 - PCV) 1999 BLOOD PRESSURE 06/28/2023 12/28/2022 INFLUENZA VACCINE (#1) 2024 , 10/20/2021, 10/23/2020 COVID-19 VACCINE ( season) 2024 11/21/2022, 10/20/2021, 06/03/2021, Additional history exists ZOSTER VACCINES Completed 02/08/2021, 10/23/2020 RSV VACCINE Completed 11/21/2022 HEPATITIS A VACCINES Aged Out No long er eligible based on patient's age to complete this topic HIB VACCINES Aged Out No longer eligi ble based on patient's age to complete this topic MENINGOCOCCAL VACCINES (ACWY) Aged Out No longer eligible based on patient's age to complete this topic MENINGOCOCCAL VACCINES (B) Aged Out N o longer eligible based on patient's age to complete this topic Medical Devices Not on file Insurance MEDICARE PART A & B [facility] MEDICARE SUPPLEMENT MEDICARE PART A & B MEDICARE SUPPLEMENT MEDICARE PART A & B MEDICARE SUPPLEMENT MEDICARE PART A & B Member Subscriber Plan / Payer (Ef fective 2014-) Name:Joselo Dean Member ID:[id number] Relation to Subscriber:Self Name:Joselo Dean Subscriber ID:[id number] Payer ID:[id number] Group ID:Not on file Type:Medicare Address: [employer] [address] MEDICARE SUPPLEMENT MEDICARE PART A & B MEDICARE SUPPLEMENT MEDICARE PART A & B [facility] MEDICARE SUPPLEMENT Care Teams Seam Closer Relationship Specialty Start Date End Date Cecil Moreno MD [address] [place] [id number] PCP - General Internal Medicine 12/28/22 Additional Source Comments The information contained in this document represents components of the legal health record. It is not the complete legal health record.[facility]
[2024-12-13 08:52] VITALS: BP 131/75; PULSE 66; RESP 16; TEMP 36.6; O2SAT 96; BMI 32.0
== END 2024-12-13 10:03 | disposition home or self-care (01) ==
LOC: HO.HMCFM 08:35
PROVIDERS: PCP Nurse Practitioner Family; Visit Provider Nurse Practitioner Family
DX: N40.1 Benign prostatic hyperplasia with lower urinary tract symptoms (principal); R35.1 Nocturia; M81.0 Age-related osteoporosis without current pathological fracture; G47.9 Sleep disorder, unspecified; Z23 Encounter for immunization

== ENCOUNTER 2024-12-31 09:56 | Outpatient (AMB) | payer MEDICARE, OTHER, SELFPAY ==
--- NOTE | 2024-12-31 09:59 | MHC.PC.OV ---
Vital Signs 12/31/24 10:02 Height 5 ft 9.5 in Weight 223 lb 2 oz BMI 32.5 BP 109/64 Blood Pressure Location Lt brachial Position Sitting Respiration 16 Pulse 71 Pulse Source Pulse Oximeter Temp 97.5 F Temp Source Oral Pulse Oximetry (%) 96 Oxygen Delivery Method Room Air Intake Visit Reasons: 2-3 wks office visit labs review Intake Note: patient here for 2-3 wks follow up for labs review Hand Rug Cleaner Required: No Allergies hydromorphone (From Dilaudid) Allergy (Intermediate, Verified 12/31/24 10:01) Vomiting Tobacco use date assessed: 12/31/24 Fall risk assessment: 2 + Falls in past year Last assessed Fall Risk: 12/31/24 Dental Screening Dental Screen Date: 12/31/24 Did you have a dental visit in the last 12 months?: Yes Did you have a dental problem in the last 6 months where you did not have access to dental care?: No Was dental information given to patient?: Patient has dentist HPI HPI Comments History of Present Illness Details 74-year-old male presents for review of recent lab results. He admits to taking his medications as prescribed without adverse reactions. He offers no complaints and denies acute symptoms at this time. [facility] Medical History (Updated 12/31/24 @ 10:29 by Latesha Mckeon CNP) Prostate troubles History of gastroesophageal reflux (GERD) IBS (irritable bowel syndrome) Osteoporosis Arthritis H/O thyroid disease Heart disease High blood pressure Tendinitis Pacemaker Surgical History (Updated 12/13/24 @ 08:58 by SAY Antunez) History of removal of cyst Hx of appendectomy History of heart bypass surgery Family History (Updated 12/13/24 @ 09:04 by SAY Antuenz) Brother Alcohol abuse Substance abuse Cardiovascular disease FH: thyroid disease Mother High blood pressure High cholesterol Cancer Other Patient's father is Social History (Updated 12/13/24 @ 08:52 by SAY Antunez) Housing: House Patient Tobacco Use Status: Never used Tobacco e-Cigarette/Vaping Use: Never Used Second Hand Smoke Exposure: No service: No Current occupational status: retired Current occupational exposures/hazards: No Cognitive needs: No Hearing needs: No Vision needs: Yes Questionnaire Thrive Questionnaire Date Thrive assessed: 12/13/24 I am a: Patient What is your living situation today?: I have a steady place to live Within the past 12 months, did the food you bought not last and you didn't have the money to get more?: Never true Within the past 12 months, did you worry whether your food would run out before you got money to buy more?: Never true Do you have trouble paying for medicines?: No Do you have trouble getting transportation to medical appointments?: No Do you have trouble paying your heating and electricity bill?: No Do you have trouble taking care of your child, family member or friend?: No Do you have trouble with day-to-day activities such as bathing, preparing meals, shopping, managing finances, etc.?: No Are you currently unemployed and looking for a job?: No Are you interested in more education?: No Please select the resources that you would like help with: None Currently or been in a relationship where the following occur: No concerns reported THRIVE Score: 0 ZANDER-7 AMB Questionnaire ZANDER-7 Date ZANDER - 7 assessed: 12/13/24 Source: Developed by Drs. Juan Mccarthy, Wandy Wood, Jaison Smith and colleagues, with an educational ed from [employer]. Review of Systems Const Details: Const Denies chills, Denies fatigue, Denies fever(s), Denies headache(s) and Denies weakness ENT Denies dizziness and Denies headache(s) Card Denies chest pain, Denies lightheadedness, Denies dyspnea and Denies other (Palpitations) Resp Denies cough, Denies dyspnea, Denies wheezing and Denies other ( shortness of breath) GI Denies abdominal pain, Denies melena, Denies hematochezia, Denies change in bowel habits, Denies dyspepsia and Denies nausea Denies hematuria and Denies dysuria Musc Denies abnormal gait, Denies myalgias, Denies arthralgias, Denies numbness and Denies tingling Skin/Breast Denies rash, Denies unusual bruising and Denies wounds Neuro Denies abnormal gait, Denies dizziness, Denies headache(s), Denies memory loss, Denies numbness, Denies Sensory deficit (Neuro), Denies tingling and Denies weakness Psych Denies anxiety, Denies depression, Denies memory loss Endo Denies cold intolerance, Denies fatigue, Denies heat intolerance, Denies polydipsia and Denies polyuria Aller/Immun Denies wheezing Physical exam (Primary Care) Vital Signs: Last Vital Signs Temp 97.5 F 12/31/24 10:02 Pulse 71 12/31/24 10:02 Resp 16 12/31/24 10:02 BP 109/64 12/31/24 10:02 Pulse Ox 96 12/31/24 10:02 Oxygen Delivery Method Room Air 12/31/24 10:02 BMI result Body Mass Index 32.5 Tobacco/Smoking Status: Tobacco use Status Tobacco use date assessed 12/31/24 12/31/24 10:06 Patient Tobacco Use Status Never used Tobacco 12/31/24 10:06 e-Cigarette/Vaping Use Never Used 12/31/24 10:06 Thrive Assessment: Date of Thrive Assessment Date Thrive assessed 12/13/24 12/31/24 10:06 Currently or been in a relationship where the following occur: No concerns reported Const Other: General: no acute distress and well developed Nutritional Appearance: well nourished Orientation/consciousness: patient oriented x3 HENMT Head: Yes normocephalic and Yes atraumatic Eyes General: appearance normal, both eyes and all related structures Pupils: Equal, round and reactive pupils present EOM: EOMs intact bilaterally Resp Effort & Inspection: normal respiratory effort Auscultation: clear to auscultation bilaterally Cardio Rate: regular rate Rhythm: regular rhythm Heart sounds: S1 normal heart sound present, S2 normal heart sound present, no gallops, no murmurs and no rubs Extrem General: Yes normal to inspection, No edema and No calf tenderness Skin General: warm and dry. Normal skin color. Normal skin turgor Neuro General: patient oriented x3, gait normal and no focal neuro deficit Cranial nerves: Yes Equal, round and reactive pupils present Cognition (Neuro): normal cognition Gait exam (Neuro): Normal gait present Sensory Exam: No Sensory deficit (Neuro) Psych Appearance: grossly normal Affect: normal affect Attitude: cooperative Thought process: Normal thought process present Coding Level of Care Code Est Pt Level 4 (66653) Diagnoses Hyperlipidemia E78.5 Transaminitis R74.01 High blood pressure I10 Thrombocytopenia D69.6 Assessment & Plan Assessment & Plan (1) Hyperlipidemia: Code(s): E78.5 - Hyperlipidemia, unspecified Category: Medical Plan: Recent triglycerides level is slightly elevated, 154, HDL level is slightly low, 38. Continue current treatment regimen. Advised to limit foods high in saturated fat and avoid foods high in trans fat. Fast for 10-12 hours, may drink water, and perform lipid panel blood work a few days before next visit. Follow-up for transfer of care with a new provider in 2 months. Return sooner with symptoms or concerns. Verbalized understanding and agreed with the plan. (2) Transaminitis: Code(s): R74.01 - Elevation of levels of liver transaminase levels Category: Medical Plan: Recent AST and ALT levels are slightly elevated, 41 and 72 respectively. He notes that his AST and ALT levels have always been slightly elevated; he had liver ultrasound about 7-8 years ago which revealed a small benign cyst. Healthy diet/weight management encouraged. Liver ultrasound ordered. Will recheck lipid panel in 3 months. Verbalized understanding and agreed with the plan. (3) High blood pressure: Code(s): I10 - Essential (primary) hypertension Category: Medical Plan: Blood pressure is 109/64, within goal of less than 130/80. Continue current treatment regimen. Follow-up in 3 months. Verbalized understanding and agreed with plan. (4) Thrombocytopenia: Code(s): D69.6 - Thrombocytopenia, unspecified Category: Medical Plan: Recent platelet level is slightly low, 155. Equivocal. Will recheck platelet level to monitor trend. Orders: Orders Lipid Panel 3 Months E78.5 - Hyperlipidemia, unspecified Liver Panel 3 Months R74.01 - Elevation of levels of liver transaminase levels Complete Blood Count no Diff 3 Months D69.6 - Thrombocytopenia, unspecified US abdomen limited Today R74.01 - Elevation of levels of liver transaminase levels
[2024-12-31 10:02] VITALS: BP 109/64; PULSE 71; RESP 16; TEMP 36.4; O2SAT 96; BMI 32.5
== END 2024-12-31 10:29 | disposition home or self-care (01) ==
LOC: HO.HMCFM 09:57
PROVIDERS: PCP Nurse Practitioner Family; Visit Provider Nurse Practitioner Family
DX: E78.5 Hyperlipidemia, unspecified (principal); R74.01 Elevation of levels of liver transaminase levels; I10 Essential (primary) hypertension; D69.6 Thrombocytopenia, unspecified

== ENCOUNTER → 2024-12-31 09:56 | Outpatient (BNVA) | payer MEDICARE, OTHER, SELFPAY | PROVIDERS: PCP Nurse Practitioner Family; Visit Provider Nurse Practitioner Family | DX: E78.5 Hyperlipidemia, unspecified (principal); R74.01 Elevation of levels of liver transaminase levels; I10 Essential (primary) hypertension; D69.6 Thrombocytopenia, unspecified | CPT/HCPCS: 99212 ==